=== PATIENT | female | born 1995 | race Caucasian/White ===

== ENCOUNTER 2016-09-02 13:53 | Emergency (ER) | payer MEDICAID ==
[2016-09-02 14:34] VITALS: BP 99/61
--- NOTE | 2016-09-02 14:57 | UC ---
Eye Complaint HPI - HPI Summary HPI Summary: PATIENT PRESENTS TO WITH RIGHT EYE SWELLING, ITCHING, PAIN AND REDNESS SINCE THIS MORNING. SHE STATES SHE HAD SOME HIVES YESTERDAY OVER HER ARMS BILATERALLY WHICH DISSIPATED WITH SOME BENADRYL. THEN, THIS MORNING SHE AWOKE WITH SWOLLEN RIGHT UPPER AND LOWER LIDS WITH ERYTHEMA AND URTICARIA. SHE DENIES PREVIOUS SIMILAR SYMPTOMS. DENIES KNOWN ALLERGIES. SHE HAS NEVER HAD THIS HAPPEN BEFORE. SHE DENIES VISUAL DISTURBANCES. DENIES DIFFICULTY BREATHING OR SWALLOWING. OTHERWISE HEALTHY AND TAKES NO MEDICATIONS. - History of Current Complaint Chief Complaint: UCEye Stated Complaint: SWOLLEN WATERY LEFT EYE Time Seen by Provider: 09/02/16 14:17 Hx Obtained From: Patient Hx Last Menstrual Period: JUST HAD A BABY ON 08/13/2016 ?: No Onset/Duration: Sudden Onset Timing: Constant Severity Initially: Moderate Severity Currently: Moderate Pain Intensity: 5 Pain Scale Used: 0-10 Numeric Location of Injury: Eye Lid (lower), Eye Lid (upper) Aggravating Factor(s): Light Alleviating Factor(s): Darkness Associated Signs And Symptoms: Positive: Drainage (Purulent), Swelling - Risk Factors Penetrating Injury Risk Factor: Negative Globe Rupture Risk Factors: Negative Acute Glaucoma Risk Factors: Eye Inflammation Optic Artery Occlusion Risk Factors: Negative - Allergies/Home Medications Allergies/Adverse Reactions: Allergies Allergy/AdvReac Type Severity Reaction Status Date / Time Albuterol [From Ventolin] Allergy Unknown Verified 11/08/15 14:09 Reaction Details Amoxicillin [From Augmentin] Allergy Unknown Verified 11/08/15 14:09 Reaction Details Clavulanic Acid Allergy Unknown Verified 11/08/15 14:09 [From Augmentin] Reaction Details Penicillin V Allergy Hives Verified 11/08/15 14:09 [From Penicillin VK Potassium] PMH/Surg Hx/FS Hx/Imm Hx Previously Healthy: Yes Endocrine History Of: Denies: Diabetes, Thyroid Disease Cardiovascular History Of: Denies: Cardiac Disorders, Hypertension Respiratory History Of: Denies: COPD, Asthma GI/ History Of: Denies: Ulcer - Surgical History Surgical History: Yes Surgery Procedure, Year, and Place: Right Wrist Cyst, T&A as a child Other Surgical History: I and D of abscess on abdomen times 2 07/2015 at [facility] - Family History Known Family History: Positive: None, Other - uncle with frequent abscesses - Social History Occupation: Unemployed Lives: With Family Alcohol Use: None Substance Use Type: None Smoking Status (MU): Never Smoked Tobacco - Immunization History Most Recent Influenza Vaccination: [id number] Review of Systems Constitutional: Negative Skin: Other - SWELLING OF RIGHT UPPER AND LOWER LIDS Eyes: Drainage, Eye Redness, Photophobia Respiratory: Negative Cardiovascular: Negative Motor: Negative Neurovascular: Negative Neurological: Negative Psychological: Negative, Anxious All Other Systems Reviewed And Are Negative: Yes Physical Exam Triage Information Reviewed: Yes Appearance: Well-Appearing, No Pain Distress, Well-Nourished Vital Signs: Initial Vital Signs Temp 98.2 F 09/02/16 14:28 Pulse 79 09/02/16 14:28 Resp 16 09/02/16 14:28 BP 99/61 09/02/16 14:28 Pulse Ox 98 09/02/16 14:28 Vital Signs Reviewed: Yes Eyes: Positive: Conjunctiva Inflamed, Discharge - PURULENT DRAINAGE ENT Exam: Normal ENT: Positive: Normal ENT inspection Dental Exam: Normal Respiratory: Positive: Chest non-tender, Lungs clear, Normal breath sounds Cardiovascular Exam: Normal Cardiovascular: Positive: RRR Neurological Exam: Normal Neurological: Positive: Alert Psychological Exam: Normal Psychological: Positive: Normal Response To Family Skin: Positive: Other - SWELLING OF UPPER AND LOWER LID OF RIGHT EYE Eye Complaint Course/Dx - Course Course Of Treatment: PURULENT DISCHARGE FROM RIGHT EYE WITH SWELLING OF RIGHT UPPER AND LOWER LIDS. NO VISUAL DISTURBANCES AND VISUAL ACUITY INTACT. YESTERDAY, SHE EXPERIENCED HIVES AFTER A NAP WHICH DISSIPATED AFTER TAKING BENADRYL. NO BREATHING DIFFICULTIES. PATIENT GIVEN POLYMYXIN DROPS, PREDNISONE X 3 DAYS AND BENADRYL FOR RELIEF. PATIENT OK FOR FOLLOW UP WITH PCP AND AGREES WITH PLAN. - Differential Dx/Diagnosis Differential Diagnosis/HQI/PQRI: Conjunctivitis, Corneal Abrasion, Periorbital Cellulitis, Uveitis Provider Diagnoses: ALLERGIC REACTION Discharge - Discharge Plan Condition: Stable Disposition: HOME Prescriptions: Loratadine & Pseudoephedrine [Claritin-D 24 Hour 10-240 mg] 1 tab PO DAILY #10 tab MDD 1 Polymyx/Trimethoprim OPTH* [Polytrim OPHTH*] 1 drop RIGHT EYE Q3H #1 btl diPHENhydraMINE PO* [Benadryl PO 50 MG CAP*] 50 mg PO BEDTIME PRN #12 cap MDD 1 PRN Reason: Rash predniSONE TAB* [Deltasone TAB*] 40 mg PO DAILY #6 tab MDD 2 Patient Education Materials: Urticaria (ED), Conjunctivitis (ED), Cold Compress or Soak (ED) Additional Instructions: Cold compresses to the right eye several times per day. Benadryl 50mg now and again at bedtime. Starting tomorrow, Claritin in the morning and benadryl at night. Prednisone daily for 3 days. If symptoms become worse, of you begin to develop visual symptoms, return to or go to the ED immediately.
== END 2016-09-02 15:00 | disposition home or self-care (01) ==
LOC: UCCORT 13:53
DX: T78.40XA Allergy, unspecified, initial encounter (principal); H02.842 Edema of right lower eyelid; H02.841 Edema of right upper eyelid; X58.XXXA Exposure to other specified factors, initial encounter; Z88.1 Allergy status to other antibiotic agents; Z88.0 Allergy status to penicillin
CPT/HCPCS: 99212; G0463

== ENCOUNTER 2016-10-24 08:57 | Emergency (ER) | payer MEDICAID ==
[2016-10-24 09:08] VITALS: BP 102/69
--- NOTE | 2016-10-24 09:52 | UC ---
Throat Pain/Nasal Mika HPI - HPI Summary HPI Summary: The patient comes in today for: 1. Sore throat: Onset: 4 days. Palliative/provocative: Swallowing makes it worse. Nothing makes it better. Quality: Scratchy, burning, sharp Region: Posterior throat. Severity: 10/10--she was up all night last night. Time: Constant. Associated symptoms: FEvers: None. Rhinitis: None. Cough: Present, but non-productive. Mononucleosis: Never had. * - History of Current Complaint Chief Complaint: UCRespiratory Stated Complaint: SORE THROAT EAR PAIN Time Seen by Provider: 10/24/16 09:43 Hx Obtained From: Patient Hx Last Menstrual Period: 2 month old baby, bleeding stopped a week ago ?: No - Allergies/Home Medications Allergies/Adverse Reactions: Allergies Allergy/AdvReac Type Severity Reaction Status Date / Time Albuterol [From Ventolin] Allergy Unknown Verified 10/24/16 09:08 Reaction Details Amoxicillin [From Augmentin] Allergy Unknown Verified 10/24/16 09:08 Reaction Details Clavulanic Acid Allergy Unknown Verified 10/24/16 09:08 [From Augmentin] Reaction Details Penicillin V Allergy Hives Verified 10/24/16 09:08 [From Penicillin VK Potassium] Home Medications: Home Medications Oral Control Pill 1 tab PO DAILY 10/24/16 [History Confirmed 10/24/16] PMH/Surg Hx/FS Hx/Imm Hx Previously Healthy: No - Family planning/BCP - Surgical History Surgical History: Yes Surgery Procedure, Year, and Place: Right Wrist Cyst, T&A as a child, c section Other Surgical History: I and D of abscess on abdomen times 2 07/2015 at [facility] - Family History Known Family History: Positive: Other - uncle with frequent abscesses Negative: Cardiac Disease, Hypertension - Social History Occupation: Employed Full-time Alcohol Use: None Substance Use Type: None Smoking Status (MU): Never Smoked Tobacco - Immunization History Most Recent Influenza Vaccination: [id number] Review of Systems Constitutional: Negative Skin: Negative Eyes: Negative ENT: Sore Throat, Ear Ache Respiratory: Negative Cardiovascular: Negative Gastrointestinal: Negative Genitourinary: Negative All Other Systems Reviewed And Are Negative: Yes Physical Exam Triage Information Reviewed: Yes Appearance: Well-Appearing, No Pain Distress, Well-Nourished Vital Signs: Initial Vital Signs Temp 98.7 F 10/24/16 09:05 Pulse 88 10/24/16 09:05 Resp 16 10/24/16 09:05 BP 102/69 10/24/16 09:05 Pulse Ox 100 10/24/16 09:05 Vital Signs Reviewed: Yes Eyes: Positive: Conjunctiva Clear. Negative: Discharge ENT: Positive: Hearing grossly normal. Negative: Pharyngeal erythema, Nasal congestion, Nasal drainage, TM bulging, TM dull, TM red, Tonsillar swelling, Tonsillar exudate Dental: Negative: Gross Decay/Caries @, Dental Fracture @ Neck: Positive: Supple, Nontender, No Lymphadenopathy. Negative: Nuchal Rigidity Respiratory: Positive: Lungs clear, No respiratory distress, No accessory muscle use. Negative: Crackles, Wheezing Cardiovascular: Positive: RRR, No Murmur Abdomen Description: Positive: Nontender, No Organomegaly, Soft. Negative: Distended, Guarding Musculoskeletal: Positive: Strength Intact, ROM Intact, No Edema Neurological: Positive: Alert, Muscle Tone Normal. Negative: Lethargic Psychological: Positive: Age Appropriate Behavior, Abnormal Response To Family Skin: Negative: rashes, breakdown Diagnostics - Laboratory Diagnostic Studies Completed/Ordered: Strep test: (-) Throat Pain/Nasal Course/Dx - Course Course Of Treatment: Patient told of the negative strep test and discussed treatment options. At this time, she wants to only take OTC Rx. - Differential Dx/Diagnosis Provider Diagnoses: Viral pharyngitis Discharge - Discharge Plan Condition: Stable Disposition: HOME Patient Education Materials: Pharyngitis (ED) Referrals: Enoc Dooley MD [Primary Care Provider] - 1 Week (Please see your primary care provider in about one to two weeks to see how well you are doing. If you get worse, please be seen sooner.)
== END 2016-10-24 10:32 | disposition home or self-care (01) ==
LOC: UCCORT 08:57
DX: J20.8 Acute bronchitis due to other specified organisms (principal); Z88.1 Allergy status to other antibiotic agents; Z88.0 Allergy status to penicillin; Z88.8 Allergy status to other drugs, medicaments and biological substances
CPT/HCPCS: 87651; 99211; G0463

== ENCOUNTER 2016-12-16 12:51 | Emergency (ER) | payer MEDICAID ==
[2016-12-16 13:03] VITALS: BP 116/63
--- NOTE | 2016-12-16 13:55 | UC ---
Dental HPI - HPI Summary HPI Summary: Patient has a fractured molar that has been causing pain fro a few weeks, getting severe, has dentist appointment in 5 days - History of Current Complaint Chief Complaint: UCDentalProblem Stated Complaint: TOOTH PAIN Time Seen by Provider: 12/16/16 13:40 Hx Obtained From: Patient Hx Last Menstrual Period: unknown, pt had baby 4 months ago ?: No Onset/Duration: Gradual Onset, Lasting Weeks Severity: Severe Related History: Previous Dental Care on Same Tooth, Swelling - Allergies/Home Medications Allergies/Adverse Reactions: Allergies Allergy/AdvReac Type Severity Reaction Status Date / Time Albuterol [From Ventolin] Allergy Unknown Verified 12/16/16 13:03 Reaction Details Amoxicillin [From Augmentin] Allergy Unknown Verified 12/16/16 13:03 Reaction Details Clavulanic Acid Allergy Unknown Verified 12/16/16 13:03 [From Augmentin] Reaction Details Penicillin V Allergy Hives Verified 12/16/16 13:03 [From Penicillin VK Potassium] PMH/Surg Hx/FS Hx/Imm Hx Previously Healthy: Yes - Surgical History Surgical History: Yes Surgery Procedure, Year, and Place: Right Wrist Cyst, T&A as a child, c section Other Surgical History: I and D of abscess on abdomen times 2 07/2015 at [facility] - Family History Known Family History: Positive: None, Other - uncle with frequent abscesses Negative: Cardiac Disease, Hypertension - Social History Alcohol Use: None Substance Use Type: None Smoking Status (MU): Never Smoked Tobacco - Immunization History Most Recent Influenza Vaccination: [id number] Review of Systems Constitutional: Negative Skin: Negative Eyes: Negative ENT: Dental Pain Respiratory: Negative Cardiovascular: Negative Gastrointestinal: Negative Genitourinary: Negative Motor: Negative Neurovascular: Negative Musculoskeletal: Negative Neurological: Negative Psychological: Negative All Other Systems Reviewed And Are Negative: Yes Physical Exam Triage Information Reviewed: Yes Appearance: Well-Appearing, Well-Nourished, Pain Distress Vital Signs: Initial Vital Signs Temp 98.6 F 12/16/16 12:57 Pulse 70 12/16/16 12:57 Resp 14 12/16/16 12:57 BP 116/63 12/16/16 12:57 Pulse Ox 100 12/16/16 12:57 Vital Signs Reviewed: Yes Eye Exam: Normal ENT Exam: Normal Dental: Positive: Gross Decay/Caries @, Dental Fracture @, Cellulitis @ Neck exam: Normal Neck: Positive: Supple, Nontender, No Lymphadenopathy Respiratory Exam: Normal Respiratory: Positive: Chest non-tender, Lungs clear, Normal breath sounds Cardiovascular Exam: Normal Cardiovascular: Positive: RRR, No Murmur, Pulses Normal Abdominal Exam: Normal Abdomen Description: Positive: Nontender, No Organomegaly, Soft Bowel Sounds: Positive: Present Musculoskeletal Exam: Normal Neurological Exam: Normal Psychological Exam: Normal Skin Exam: Normal Dental Complaint Course/Dx - Course Course Of Treatment: hx obtained, exam performed, meds reviewed, treate for fracture tooth with infection - Differential Dx/Diagnosis Differential Diagnosis/Dx: Dental Abscess, Fractured Tooth Provider Diagnoses: dnetal fracture. dental infection Discharge - Discharge Plan Condition: Stable Disposition: HOME Prescriptions: Acetaminop/Codeine 30 MG TAB* [Tylenol/Codeine 30 MG TAB*] 1 tab PO Q8H PRN #9 tab MDD 3 tabs PRN Reason: Pain Clindamycin CAP* [Cleocin 150 MG CAP*] 300 mg PO TID #21 cap Patient Education Materials: Dental Abscess (ED) Additional Instructions: 1. take the medcation as prescribed. 2. Increase fluid intake 3. gargle with salt water 4. Follow up with the dentist
== END 2016-12-16 14:00 | disposition home or self-care (01) ==
LOC: UCCORT 12:51
DX: K03.81 Cracked tooth (principal); K04.7 Periapical abscess without sinus; Z88.1 Allergy status to other antibiotic agents; Z88.0 Allergy status to penicillin
CPT/HCPCS: 99212; G0463

== ENCOUNTER 2017-06-26 14:46 | Emergency (ER) | payer OTHER ==
[2017-06-26 15:48] VITALS: BP 125/61
--- NOTE | 2017-06-26 16:02 | ED ---
Skin Complaint - HPI Summary HPI Summary: 21 yr old with rash for 5 days. She used a mud treatment for her feet on friday and then began to get itching on Friday. She states she has itching to both arms, and to the upper right thigh and to the right side of her trunk. She does not feel ill in any way. People in her family are not itching and they do not have a rash. she lives with several other people in the same home. She works as a [employer]. Nobody else itching around her. - History of Current Complaint Chief Complaint: UCSkin Time Seen by Provider: 06/26/17 15:49 Stated Complaint: SKIN COMPLAINT Hx Last Menstrual Period: 05/21/17 Pain Intensity: 0 - Allergy/Home Medications Allergies/Adverse Reactions: Allergies Allergy/AdvReac Type Severity Reaction Status Date / Time amoxicillin [From Augmentin] Allergy Hives Verified 06/26/17 15:43 azithromycin Allergy Hives Verified 06/26/17 15:43 clavulanic acid Allergy Hives Verified 06/26/17 15:43 [From Augmentin] Penicillins Allergy Hives Verified 06/26/17 15:43 ANY "CILLINS" Allergy Hives Uncoded 06/26/17 15:43 PMH/Surg Hx/FS Hx/Imm Hx Endocrine/Hematology History: Denies: Hx Diabetes, Hx Thyroid Disease Cardiovascular History: Denies: Hx Hypertension Respiratory History: Denies: Hx Asthma, Hx Chronic Obstructive Pulmonary Disease (COPD) GI History: Denies: Hx Ulcer - Surgical History Surgery Procedure, Year, and Place: Right Wrist Cyst, T&A as a child, c section Infectious Disease History: Yes Infectious Disease History: Reports: 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 Denies: Hx Clostridium Difficile, Hx Hepatitis, Hx Human Immunodeficiency Virus (HIV), Hx Shingles, Hx Tuberculosis, Hx Known/Suspected VRE, Hx Known/ Suspected VRSA, History Other Infectious Disease, Traveled Outside the [place] in Last 30 Days - Family History Known Family History: Positive: None, Other - uncle with frequent abscesses Negative: Cardiac Disease, Hypertension - Social History Occupation: Employed Full-time Lives: With Family Alcohol Use: None Substance Use Type: Reports: None Smoking Status (MU): Never Smoked Tobacco Review of Systems Negative: Fever, Chills Positive: Rash All Other Systems Reviewed And Are Negative: Yes Physical Exam Triage Information Reviewed: Yes Vital Signs On Initial Exam: Initial Vitals Temp Pulse Resp BP Pulse Ox 97.2 F 97 16 125/61 100 06/26/17 15:43 06/26/17 15:43 06/26/17 15:43 06/26/17 15:43 06/26/17 15:43 Vital Signs Reviewed: Yes Appearance: Positive: Well-Appearing, No Pain Distress Skin: Positive: Other - there is a mild rash on the inside of her arms, and on the right flank, and the right lower thigh area that appears papular and without any cellulitis, hives. No purpura and no petechia. Eyes: Positive: EOMI ENT: Positive: Normal ENT inspection, Pharynx normal, TMs normal, Other - tongue and lips are normal. Negative: Pharyngeal erythema, Nasal congestion, Muffled voice, Hoarse voice Neck: Positive: Nontender Respiratory/Lung Sounds: Positive: Clear to Auscultation, Breath Sounds Present Cardiovascular: Positive: RRR. Negative: Murmur Abdomen Description: Positive: Nontender Musculoskeletal: Positive: Strength/ROM Intact Neurological: Positive: Sensory/Motor Intact, Alert, Oriented to Person Place, Time, CN Intact II-III Psychiatric: Positive: Normal - Oksana Coma Scale Best Eye Response: 4 - Spontaneous Best Motor Response: 6 - Obeys Commands Best Verbal Response: 5 - Oriented Coma Scale Total: 15 Diagnostics - Vital Signs Vital Signs Temp Pulse Resp BP Pulse Ox 06/26/17 15:43 97.2 F 97 16 125/61 100 - Laboratory Lab Statement: Any lab studies that have been ordered have been reviewed, and results considered in the medical decision making process. Course/Dx - Course Course Of Treatment: 21 yr old female with non specific rash. Do not think this is infectious, and not scabies. It is likely allergic in nature. recommend benadryl as this appears rather minor at this point. FU with PMD. - Diagnoses Provider Diagnoses: Rash and nonspecific skin eruption Discharge - Discharge Plan Condition: Good Disposition: HOME Patient Education Materials: Acute Rash (ED) Referrals: No Primary Care Phys,NOPCP [Primary Care Provider] -
== END 2017-06-26 16:10 | disposition home or self-care (01) ==
LOC: UCCORT 14:46
DX: R21 Rash and other nonspecific skin eruption (principal)
CPT/HCPCS: 99211; G0463

== ENCOUNTER 2017-12-11 13:16 | Emergency (ER) | payer OTHER ==
[2017-12-11 13:44] VITALS: BP 105/71
--- NOTE | 2017-12-11 14:01 | UC ---
Dental HPI - HPI Summary HPI Summary: 2 weeks of left lower dental pain seen dentist today and is planning to have 2 teeth removed--patient was unsure of the antibiotics she was allergic to at the dentist office , so the dentist sent her to [facility] for antibiotic treatment - History of Current Complaint Chief Complaint: UCDentalProblem Stated Complaint: DENTAL COMPLAINT Time Seen by Provider: 12/11/17 13:28 Hx Obtained From: Patient Hx Last Menstrual Period: 09/08/17-09/10/17 ?: No Onset/Duration: Sudden Onset, Lasting Weeks - 2, Still Present Pain Intensity: 10 Pain Scale Used: 0-10 Numeric Aggravating Factor(s): Nothing Alleviating Factor(s): Nothing Related History: Previous Dental Care on Same Tooth, Swelling - Allergies/Home Medications Allergies/Adverse Reactions: Allergies Allergy/AdvReac Type Severity Reaction Status Date / Time amoxicillin [From Augmentin] Allergy Hives Verified 12/11/17 13:33 azithromycin Allergy Hives Verified 12/11/17 13:33 clavulanic acid Allergy Hives Verified 12/11/17 13:33 [From Augmentin] Penicillins Allergy Hives Verified 12/11/17 13:33 ANY "CILLINS" Allergy Hives Uncoded 12/11/17 13:33 PMH/Surg Hx/FS Hx/Imm Hx Previously Healthy: Yes - Surgical History Surgical History: Yes Surgery Procedure, Year, and Place: Right Wrist Cyst, T&A as a child, c section Other Surgical History: I and D of abscess on abdomen times 2 07/2015 at [facility] - Family History Known Family History: Positive: None, Other - uncle with frequent abscesses Negative: Cardiac Disease, Hypertension - Social History Occupation: Employed Full-time Lives: With Family Alcohol Use: None Substance Use Type: None Smoking Status (MU): Never Smoked Tobacco - Immunization History Most Recent Influenza Vaccination: [id number] Review of Systems Constitutional: Negative Skin: Negative Eyes: Negative ENT: Dental Pain Respiratory: Negative Cardiovascular: Negative Gastrointestinal: Negative Genitourinary: Negative Motor: Negative Neurovascular: Negative Musculoskeletal: Negative Neurological: Negative Psychological: Negative Is Patient Immunocompromised?: No All Other Systems Reviewed And Are Negative: Yes Physical Exam Triage Information Reviewed: Yes Appearance: Well-Appearing, No Pain Distress, Well-Nourished Vital Signs: Initial Vital Signs Temp 98.4 F 12/11/17 13:33 Pulse 94 12/11/17 13:33 Resp 16 12/11/17 13:33 BP 105/71 12/11/17 13:33 Pulse Ox 99 12/11/17 13:33 Vital Signs Reviewed: Yes Eye Exam: Normal Eyes: Positive: Conjunctiva Clear ENT Exam: Normal ENT: Positive: Normal ENT inspection, Hearing grossly normal, Dental tenderness. Negative: Nasal congestion, Trismus, Muffled voice, Hoarse voice Dental Exam: Normal Dental: Positive: Gross Decay/Caries @, Abscess @ - left lower dental pain Neck exam: Normal Neck: Positive: Supple, Nontender Respiratory Exam: Normal Respiratory: Positive: Chest non-tender, Lungs clear, Normal breath sounds, No respiratory distress Cardiovascular Exam: Normal Cardiovascular: Positive: RRR, No Murmur, Pulses Normal, Brisk Capillary Refill Musculoskeletal Exam: Normal Musculoskeletal: Positive: Strength Intact, ROM Intact, No Edema Neurological Exam: Normal Neurological: Positive: Alert, Muscle Tone Normal Psychological Exam: Normal Skin Exam: Normal Dental Complaint Course/Dx - Course Course Of Treatment: Clindamycin, probiotic, follow with dentist as planned - Differential Dx/Diagnosis Provider Diagnoses: Left lower dental caries with abscess Discharge - Sign-Out/Discharge Documenting (check all that apply): Patient Departure - Discharge Plan Condition: Stable Disposition: HOME Prescriptions: Clindamycin Cap(NF) [Clindamycin Cap 300 mg Cap(NF)] 300 mg PO Q6H #40 cap Patient Education Materials: Dental Abscess (ED), Toothache (ED) Referrals: Enoc Dooley MD [Primary Care Provider] - Additional Instructions: Follow with dentist as planned, please eat a probiotic rich yogurt, and other fermented foods like sauerkraut while on this antibiotic to help decrease risk of diarrhea - Billing Disposition and Condition Condition: STABLE Disposition: Home
== END 2017-12-11 14:05 | disposition home or self-care (01) ==
LOC: UCCORT 13:16
DX: K04.7 Periapical abscess without sinus (principal); K02.9 Dental caries, unspecified; Z88.1 Allergy status to other antibiotic agents; Z88.0 Allergy status to penicillin
CPT/HCPCS: 81025; 99212; G0463

== ENCOUNTER 2018-09-28 07:15 | Emergency (ER) | payer OTHER ==
[2018-09-28 07:36] VITALS: BP 110/60
--- NOTE | 2018-09-28 08:05 | UC ---
Throat Pain/Nasal Mika HPI - HPI Summary HPI Summary: 23 yo female with sore throat and myalgias x 5 days dysuria x 2 days no vag d/c - History of Current Complaint Chief Complaint: UCGeneralIllness Stated Complaint: ST Time Seen by Provider: 09/28/18 07:43 Hx Obtained From: Patient Hx Last Menstrual Period: Depo-Provera: Irregular Onset/Duration: Gradual Onset, Lasting Days Severity: Severe Pain Intensity: 8 Pain Scale Used: 0-10 Numeric Cough: None Related History: Prior ENT Surgery, T & A - Epiglottits Risk Factors Epiglottis Risk Factors: Negative - Allergies/Home Medications Allergies/Adverse Reactions: Allergies Allergy/AdvReac Type Severity Reaction Status Date / Time amoxicillin [From Augmentin] Allergy Hives Verified 09/28/18 07:31 azithromycin Allergy Hives Verified 09/28/18 07:31 clavulanic acid Allergy Hives Verified 09/28/18 07:31 [From Augmentin] erythromycin base Allergy Hives Verified 09/28/18 07:31 Penicillins Allergy Hives Verified 09/28/18 07:31 clindamycin AdvReac Transient Verified 09/28/18 07:31 Chest Pain and SOB Home Medications: Home Medications Ibuprofen TAB* [Advil TAB*] 800 mg PO Q8H PRN 09/28/18 [History Confirmed ] medroxyPROGESTERone ACETATE* [DEPO-Provera] 150 mg IM Q90D 09/28/18 [History Confirmed 09/28/18] PMH/Surg Hx/FS Hx/Imm Hx Previously Healthy: Yes - Surgical History Surgical History: Yes Surgery Procedure, Year, and Place: Right Wrist Cyst, T&A as a child, c section Other Surgical History: I and D of abscess on abdomen times 2 07/2015 at [facility] - Family History Known Family History: Positive: None, Other - uncle with frequent abscesses Negative: Cardiac Disease, Hypertension - Social History Alcohol Use: None Substance Use Type: None Smoking Status (MU): Never Smoked Tobacco - Immunization History Most Recent Influenza Vaccination: [id number] Review of Systems All Other Systems Reviewed And Are Negative: Yes Constitutional: Positive: Negative Skin: Positive: Negative Eyes: Positive: Negative ENT: Positive: Sore Throat, Nasal Discharge, Sinus Pain/Tenderness Respiratory: Positive: Negative Cardiovascular: Positive: Negative Gastrointestinal: Positive: Negative Genitourinary: Positive: Dysuria, Frequency, Urgency. Negative: Hematuria, Vaginal/Penile Burning, Vaginal/Penile Itching, Vaginal/Penile Discharge, Vaginal/Penile Pain, Vaginal/Penile Tenderness, Ulceration/Lesion, Abnormal Bleeding Motor: Positive: Negative Neurovascular: Positive: Negative Musculoskeletal: Positive: Negative Neurological: Positive: Negative Psychological: Positive: Negative Physical Exam Triage Information Reviewed: Yes Appearance: Well-Appearing, No Pain Distress, Well-Nourished Vital Signs: Initial Vital Signs Temp 98.9 F 09/28/18 07:27 Pulse 90 09/28/18 07:27 Resp 16 09/28/18 07:27 BP 110/60 09/28/18 07:27 Pulse Ox 100 09/28/18 07:27 Vital Signs Reviewed: Yes Eyes: Positive: Conjunctiva Clear ENT: Positive: Hearing grossly normal, Pharyngeal erythema, Nasal congestion, TMs normal, Uvula midline. Negative: Nasal drainage, TM bulging, TM dull, TM red, Tonsillar swelling, Tonsillar exudate, Trismus, Muffled voice, Hoarse voice , Dental tenderness, Sinus tenderness Dental Exam: Normal Neck: Positive: Supple, Nontender, No Lymphadenopathy Respiratory: Positive: Lungs clear, Normal breath sounds, No respiratory distress, No accessory muscle use Cardiovascular: Positive: RRR, No Murmur Abdomen Description: Positive: Nontender, No Organomegaly, Soft. Negative: CVA Tenderness (R), CVA Tenderness (L) Bowel Sounds: Positive: Present Musculoskeletal: Positive: ROM Intact, No Edema Neurological: Positive: Alert Psychological Exam: Normal Skin Exam: Normal Diagnostics - Laboratory Lab Results: strep (-), UA +1 leuks Throat Pain/Nasal Course/Dx - Differential Dx/Diagnosis Provider Diagnosis: Pharyngitis, Dysuria Discharge - Sign-Out/Discharge Documenting (check all that apply): Patient Departure All imaging exams completed and their final reports reviewed: No Studies - Discharge Plan Condition: Stable Disposition: HOME Prescriptions: Cephalexin CAP* [Keflex CAP*] 500 mg PO BID #14 cap Fluconazole 150 MG (NF) [Diflucan 150 mg (NF)] 150 mg PO ONCE #1 tab Patient Education Materials: Pharyngitis (ED), Dysuria (ED) Additional Instructions: urine culture pending take diflucan for vaginal discharge or itch recheck in 4 days if not better See your pharm tech if burning on urination persists - Billing Disposition and Condition Condition: STABLE Disposition: Home
--- NOTE | 2018-09-30 07:34 | UC ---
- Progress Note Progress Note: Please contact patient - Your urine culture was negative for a UTI. You can discontinue antibiotics. If symptoms persist, recommend follow up with your PCP or return to urgent care. Course/Dx - Diagnoses Provider Diagnoses: Pharyngitis, Dysuria Discharge - Sign-Out/Discharge Documenting (check all that apply): Post-Discharge Follow Up All imaging exams completed and their final reports reviewed: No Studies - Discharge Plan Condition: Stable Disposition: HOME Prescriptions: Cephalexin CAP* [Keflex CAP*] 500 mg PO BID #14 cap Fluconazole 150 MG (NF) [Diflucan 150 mg (NF)] 150 mg PO ONCE #1 tab Patient Education Materials: Pharyngitis (ED), Dysuria (ED) Referrals: No Primary Care Phys,NOPCP [Primary Care Provider] - Additional Instructions: urine culture pending take diflucan for vaginal discharge or itch recheck in 4 days if not better See your supervisor sandblaster if burning on urination persists - Billing Disposition and Condition Condition: STABLE Disposition: Home
== END 2018-09-28 08:45 | disposition home or self-care (01) ==
LOC: UCCORT 07:15
DX: J02.9 Acute pharyngitis, unspecified (principal); R30.0 Dysuria; M79.10 Myalgia, unspecified site; Z88.0 Allergy status to penicillin; Z88.1 Allergy status to other antibiotic agents; Z88.8 Allergy status to other drugs, medicaments and biological substances
CPT/HCPCS: 81003; 87086; 87651; 99212; G0463

== ENCOUNTER 2018-11-23 16:25 | Emergency (ER) | payer OTHER ==
[2018-11-23 16:40] VITALS: BP 120/61
--- NOTE | 2018-11-23 17:32 | UC ---
General HPI - HPI Summary HPI Summary: Sore throat x 1 wk, onset of left ear pain 1 wk ago, right ear pain x 2 days, pt. bit her lower lip 11/19/18 which continues to be painful. - History of Current Complaint Chief Complaint: UCGeneralIllness Stated Complaint: SORE THROAT,BILAT EAR CONCERN Time Seen by Provider: 11/23/18 17:25 Hx Obtained From: Patient Hx Last Menstrual Period: 10/23/18 Onset/Duration: Gradual Onset Timing: Constant Pain Intensity: 10 Associated Signs & Symptoms: Negative: Fever - Allergy/Home Medications Allergies/Adverse Reactions: Allergies Allergy/AdvReac Type Severity Reaction Status Date / Time amoxicillin [From Augmentin] Allergy Hives Verified 11/23/18 16:35 azithromycin Allergy Hives Verified 11/23/18 16:35 clavulanic acid Allergy Hives Verified 11/23/18 16:35 [From Augmentin] erythromycin base Allergy Hives Verified 11/23/18 16:35 Penicillins Allergy Hives Verified 11/23/18 16:35 clindamycin AdvReac Transient Verified 11/23/18 16:35 Chest Pain and SOB PMH/Surg Hx/FS Hx/Imm Hx Previously Healthy: Yes - Surgical History Surgical History: Yes Surgery Procedure, Year, and Place: Right Wrist Cyst, T&A as a child, c section Other Surgical History: I and D of abscess on abdomen times 2 07/2015 at [facility] - Family History Known Family History: Positive: None, Other - uncle with frequent abscesses Negative: Cardiac Disease, Hypertension - Social History Alcohol Use: None Substance Use Type: None Smoking Status (MU): Never Smoked Tobacco - Immunization History Most Recent Influenza Vaccination: [id number] Review of Systems All Other Systems Reviewed And Are Negative: Yes Constitutional: Negative: Fever Skin: Negative: Rash ENT: Positive: Sore Throat, Ear Ache. Negative: Sinus Congestion Physical Exam Triage Information Reviewed: Yes Appearance: Well-Appearing Vital Signs: Initial Vital Signs Temp 98.6 F 11/23/18 16:36 Pulse 107 11/23/18 16:36 Resp 12 11/23/18 16:36 BP 120/61 11/23/18 16:36 Pulse Ox 100 11/23/18 16:36 Vital Signs Reviewed: Yes Eyes: Positive: Conjunctiva Clear ENT: Positive: Pharyngeal erythema, TMs normal - R, TM red - L, Uvula midline, Other - small ulcer inside R lower lip from bite, no swelling or drainage.. Negative: Nasal congestion, Nasal drainage, Tonsillar swelling, Tonsillar exudate, Trismus, Muffled voice, Hoarse voice Neck: Positive: Supple, Tenderness @ - peritonsilar nodes, Enlarged Nodes @ - peritonsilar Respiratory: Positive: Lungs clear, Normal breath sounds Cardiovascular: Positive: RRR, No Murmur Abdomen Description: Positive: Nontender Musculoskeletal: Positive: ROM Intact Neurological: Positive: Alert Psychological: Positive: Age Appropriate Behavior Skin Exam: Normal Skin: Negative: Rashes Course/Dx - Course Course Of Treatment: pcn allergy is hives thus with tx with cefdinir to cover her OM, pharyngitis and bite to lower lip. - Differential Dx - Multi-Symptom Differential Diagnoses: Other - txing L OM thus rapid strep not doen because it will not change her tx. - Diagnoses Provider Diagnosis: Otitis media, Pharyngitis, Canker sore Discharge - Sign-Out/Discharge Documenting (check all that apply): Patient Departure All imaging exams completed and their final reports reviewed: No Studies - Discharge Plan Condition: Stable Disposition: HOME Prescriptions: Cefdinir [Cefdinir 300 MG CAP] 300 mg PO BID 10 Days #20 capsule Patient Education Materials: Pharyngitis (ED), Canker Sores (ED), Ear Infection (ED) Referrals: DAVID Manriquez [Medical Doctor] - Additional Instructions: If not better in 5-7 days or sooner if worse. - Billing Disposition and Condition Condition: STABLE Disposition: Home
== END 2018-11-23 17:44 | disposition home or self-care (01) ==
LOC: UCCORT 16:25
DX: H66.92 Otitis media, unspecified, left ear (principal); J02.9 Acute pharyngitis, unspecified; K12.0 Recurrent oral aphthae; Z88.0 Allergy status to penicillin; Z88.1 Allergy status to other antibiotic agents
CPT/HCPCS: 99212; G0463